=== PATIENT | female | born 1990 | race Caucasian/White ===

== ENCOUNTER 2017-05-03 22:43 | Emergency (ER) | payer BC, MEDICAID ==
--- NOTE | 2017-05-03 23:08 | ERNOTE ---
Headache ER HPI - Narrative Date of Service: 05/03/17 - General Time Seen by Provider: 05/03/17 23:05 Source: patient - Immun/Allergies/Home Medications Immunizations: IMMUNIZATION HX Immunizations Up to Date Yes Allergies/Adverse Reactions: Allergies No Known Allergies Allergy (Verified 07/10/14 16:30) Home Medications: HOME MEDICATIONS Naproxen [Naprosyn] 500 mg PO BID #20 tablet 05/04/17 [Last Taken Unknown] Promethazine HCl [Phenergan] 25 mg PO QID PRN #10 tablet 05/04/17 [Last Taken Unknown] - History of Present Illness Narrative: Patient is a 27-year-old female with no established primary care physician presents today with assisted severe worsening of headache at approximately 1800 hrs. today. Patient reports associated nausea and neck discomfort no change in vision but there is mild photophobia. Date (Duration): 05/03/17 Time (Timing): 18:00 Activity at onset: exertion Timing of Headache: gradual Context Headache: Present: other - previous history of migraine headaches, usually very infrequent. Quality: Present: pressure, throbbing Severity Maximum: Present: moderate Severity-Currently: Present: moderate Headache frequency: Present: occasional headaches Modifying Factors - (Improves): Reports: rest, other - medications to date have not helped she took Excedrin Migraine headache 2. Modifying Factors - (Worsens): Reports: movement, exposure to light Associated Symptoms: Reports: nausea, neck pain/stiffness, other - nosebleed Exacerbated by:: Reports: light, movement Prior Treament: Denies: recently seen Review of Systems - Narrative Narrative: Patient's past medical history past social history past surgical history been reviewed. Past surgical history reveals a partial hysterectomy in 2015 - Review of Systems Constitutional: Present: See HPI EYE: Present: see HPI, other - photophobia ENT: Present: no symptoms reported Respiratory: Present: no symptoms reported Cardiology: Present: no symptoms reported Gastrointestinal/Abdominal: Present: nausea. Absent: vomiting Genitourinary: Present: no symptoms reported Musculoskeletal: Present: muscle stiffness, neck pain Skin: Present: no symptoms reported Neurological: Present: See HPI, headache. Absent: dizziness/light-headedness Endocrine: Present: no symptoms reported Hematologic/Lymphatic: Present: no symptoms reported Psych: Present: no symptoms reported All Other Systems: All systems neg except as marked - Patient's Past Medical History Patient History - Medical: Migraines Patient History - Cardiac/Respiratory: No pertinent hx Patient History - Cancer: No Hx of Cancer Patient History - Surgical Procedures: , Other - partial hysterectomy 2014 Patient History - Other: None LMP (females 10-50): last week - Social History Living Situations: spouse Abuse History: No History of abuse Psych History: No pertinent hx Have you smoked in the past 12 months: Yes Alcohol Use: none Drug Use: none - Immunizations Immunizations Up to Date: Yes Physical Exam - Physical Exam General Appearance: Present: wd/wn, alert Eye Exam: Normal inspection: bilateral, PERRL: bilateral, EOMI: bilateral ED Progress - Vital Signs Vital Signs: Vital Signs 05/03/17 22:48 Temperature 36.2 C L Pulse Rate 66 Respiratory 14 Rate Blood Pressure 121/77 O2 Sat by Pulse 100 Oximetry - Progress/Reassessment Chief Complaint: Headache Plan - Plan Plan: Patient reevaluated then did not he she has significant improvement and her headache pain. Patient states that she is stable for discharge. She is seeking primary care and information will be given regarding starting up with a new primary care physician. Departure Clinical Impression: Migraine Qualifiers: Migraine type: without aura Status migrainosus presence: without status migrainosus Intractability: intractable Qualified Code(s): G43.019 - Migraine without aura, intractable, without status migrainosus - Departure Disposition: Home self-care Instructions: Nausea, Adult, Recurrent Migraine Headache, [id number] Additional Instructions: Referral for new PCP was given. Prescriptions: Naproxen [Naprosyn] 500 mg PO BID #20 tablet Promethazine HCl [Phenergan] 25 mg PO QID PRN #10 tablet PRN Reason: Nausea
[2017-05-03] MEDS ORDERED: ONDANSETRON 4 MG TAB.RAPDIS PO ONE (23:13)
[2017-05-03] MEDS ORDERED: CYCLOBENZAPRINE HCL 10 MG TABLET PO ONE (23:14)
[2017-05-03] MEDS ORDERED: KETOROLAC TROMETHAMINE 60 MG/2 ML VIAL IM ONE ×2 (23:14→23:17)
[2017-05-03] MEDS ORDERED: ONDANSETRON 4 MG TAB.RAPDIS ONE (23:17)
[2017-05-03] MEDS ORDERED: CYCLOBENZAPRINE HCL 10 MG TABLET ONE (23:17)
[2017-05-04 01:37] VITALS: BP 116/66
== END 2017-05-04 00:20 | disposition home or self-care (01) ==
LOC: ER 22:43
DX: G43.019 Migraine without aura, intractable, without status migrainosus (principal); Z87.891 Personal history of nicotine dependence